=== PATIENT | male | born 1970 | race Caucasian/White ===

== ENCOUNTER 2019-03-20 17:40 | Emergency (ER) | payer OTHER ==
[2019-03-20] MEDS ORDERED: Ketorolac 60 MG/2 ML SDV IM ONE (18:05)
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
--- NOTE | 2019-03-20 18:53 | CR ---
[id number] RAD/RAD Ribs [facility] 4V W PA Chest EXAM: FRONTAL CHEST, RIGHT RIBS 2 VIEWS, LEFT RIBS 2 VIEWS INDICATION: Fall. COMPARISON: None. DISCUSSION: The heart and lungs are normal in appearance. No rib fracture or other osseous abnormality is identified. IMPRESSION: 1. Negative exam. Adolfo Levine MD 03/20/19 [id number] Thank you for allowing us to participate in the care of your patient.
[2019-03-20] MEDS ORDERED: Take Home: Ketorolac 10 MG Tab, 4 Tab Pack PO ONE (19:09)
== END 2019-03-20 19:45 | disposition home or self-care (01) ==
LOC: VM.ED 17:40
DX: S20.211A Contusion of right front wall of thorax, initial encounter (principal); S40.211A Abrasion of right shoulder, initial encounter; Z88.1 Allergy status to other antibiotic agents; Z88.8 Allergy status to other drugs, medicaments and biological substances; V18.4XXA Pedal cycle driver injured in noncollision transport accident in traffic accident, initial encounter
CPT/HCPCS: 71111; 96372; 99283; A9270; J1885